=== PATIENT | female | born 1990 | race Caucasian/White ===

== ENCOUNTER 2020-02-06 13:47 | Emergency (ER) | payer MEDICAID, OTHER ==
[~2020-02-06] VITALS: Ht 167.6 cm; Wt 59.0 kg
[2020-02-06] MEDS ORDERED: KETOROLAC 15MG/ML VIAL IV ONE (14:45)
[2020-02-06] MEDS ORDERED: SODIUM CHLORIDE 0.9% 1,000 ML IV ONE (14:45)
[2020-02-06 15:08] LABS: BASOPHILS % 0.6 % (0.0-2.0); EOSINOPHILS % 0.8 % (0.0-5.0); HEMATOCRIT. 43.1 % (36.0-48.0); HEMOGLOBIN. 14.5 g/dL (12.0-16.0); LYMPHOCYTES % 24.2 % (20.0-50.0); MEAN CORPUSCULAR HEMOGLOBIN 31.6 pg (28.0-32.0); MEAN CORPUSCULAR VOLUME 93.6 fL (81.0-99.0); MEAN PLATELET VOLUME 9.7 fl (7.4-10.4); MONOCYTES % 6.5 % (2.0-8.0); NEUTROPHILS % 67.9 % (40.0-76.0); PLATELET 180 x1000/uL (130-400)
[2020-02-06 15:11] LABS: D-DIMER 1.53 mg/L FEU (<0.50); PROTHROMBIN TIME 10.9 sec (9.6-11.0)
[2020-02-06 15:14] LABS: CHLORIDE 106 mEq/L (98-107)
[2020-02-06 15:18] LABS: ETHANOL BLOOD < 10 mg/dL
[2020-02-06] MEDS ORDERED: IOHEXOL-350 100 ML BOTTLE ONE (15:29)
[2020-02-06 15:34] LABS: HCG SCREEN NEGATIVE
[2020-02-06 15:41] LABS: CLARITY URINE CLEAR (CLEAR); COLOR URINE YELLOW (YELLOW); KETONES URINE NEGATIVE (NEGATIVE); LEUKOCYTE ESTERASE URINE NEGATIVE (NEGATIVE); NITRITE URINE NEGATIVE (NEGATIVE); OCCULT BLOOD URINE NEGATIVE (NEGATIVE); PH URINE 5.5 (4.5-8.0); PROTEIN URINE NEGATIVE (NEGATIVE); SPECIFIC GRAVITY URINE 1.033 (1.005-1.030); UROBILINOGEN URINE 0.2 E.U./dL (0.2-1.0)
[2020-02-06 15:52] LABS: *AMPHETAMINES SCREEN URINE NEGATIVE (NEGATIVE); *BARBITURATES SCREEN URINE NEGATIVE (NEGATIVE); *BENZODIAZEPINES SCREEN URINE NEGATIVE (NEGATIVE); *COCAINE SCREEN URINE NEGATIVE (NEGATIVE)
[2020-02-06 15:53] LABS: CANNABINOID URINE SCREEN NEGATIVE (NEGATIVE); METHADONE URINE SCREEN NEGATIVE (NEGATIVE); OPIATES URINE SCREEN NEGATIVE (NEGATIVE); PHENCYCLIDINE URINE SCREEN NEGATIVE (NEGATIVE)
[2020-02-06 18:23] VITALS: BP 117/76
== END 2020-02-06 18:26 | disposition short-term general hospital (02) ==
LOC: ER 13:47 → CANBEDREQ 19:05
DX: R07.89 Other chest pain (principal); R42 Dizziness and giddiness; Z90.710 Acquired absence of both cervix and uterus
CPT/HCPCS: 36415; 70450; 71045; 71275; 80053; 80305; 80320; 81003; 81025; 83690; 83880; 84484; 84703; 85025; 85379; 85610; 93005; 96361; 96374; 99285; J1885; J7030; Q9967; G0480

== ENCOUNTER 2020-07-27 18:46 | Emergency (ER) | payer OTHER ==
[~2020-07-27] VITALS: Ht 167.6 cm; Wt 57.0 kg
[2020-07-27] MEDS ORDERED: ONDANSETRON HCL 4MG/2ML INJ IV STA (19:10)
[2020-07-27] MEDS ORDERED: SODIUM CHLORIDE 0.9% 1,000 ML IV ONE (19:15)
[2020-07-27 19:35] LABS: BASOPHILS % 0.5 % (0.0-2.0); EOSINOPHILS % 1.3 % (0.0-5.0); HEMATOCRIT. 37.9 % (36.0-48.0); HEMOGLOBIN. 13.2 g/dL (12.0-16.0); LYMPHOCYTES % 32.7 % (20.0-50.0); MEAN PLATELET VOLUME 10.1 fl (7.4-10.4); MONOCYTES % 8.2 % (2.0-8.0); NEUTROPHILS % 57.3 % (40.0-76.0); PLATELET 160 x1000/uL (130-400); RED BLOOD CELL COUNT 4.12 mill/uL (4.2-5.4); RED CELL DISTRIBUTION WIDTH 12.9 % (11.6-14.6)
[2020-07-27 19:43] LABS: CHLORIDE 111 mEq/L (98-107)
[2020-07-27 19:44] LABS: PROTHROMBIN TIME 11.2 sec (9.6-11.0)
[2020-07-27 19:45] LABS: ETHANOL BLOOD < 10 mg/dL
[2020-07-27 19:57] LABS: BG BASE EXCESS 0.2 mmol/L (-2.0-2.0); BG CARBOXYHEMOGLOBIN 0.2 % (0.5-1.5); BG DEOXYHEMOGLOBIN 3.2 % (0.0-5.0); BG FRACTION INSPIRED OXYGEN 21; BG HCO3 ACT 24.3 mmol/L (22.0-26.0); BG METHEMOGLOBIN 0.3 % (0.0-1.5); BG OXYGEN SATURATION 96.8 % (92.0-98.5); BG OXYHEMOGLOBIN 96.3 % (94.0-97.0); BG PCO2 37.4 mmHg (35.0-45.0); BG PO2 89.2 mmHg (75.0-100.0); BG SAMPLE SITE RIGHT RADIAL; BG TOTAL HEMOGLOBIN 13.8 g/dL (12.0-18.0); BG VENT MODE ROOM AIR
[2020-07-27] MEDS ORDERED: METOCLOPRAMIDE HCL 10MG/2ML VIAL IV ONE (20:30)
[2020-07-27 20:56] LABS: *BARBITURATES SCREEN URINE NEGATIVE (NEGATIVE); *BENZODIAZEPINES SCREEN URINE NEGATIVE (NEGATIVE); *COCAINE SCREEN URINE NEGATIVE (NEGATIVE); METHADONE URINE SCREEN NEGATIVE (NEGATIVE)
[2020-07-27 20:57] LABS: *AMPHETAMINES SCREEN URINE NEGATIVE (NEGATIVE); OPIATES URINE SCREEN NEGATIVE (NEGATIVE); PHENCYCLIDINE URINE SCREEN NEGATIVE (NEGATIVE)
[2020-07-27 21:00] LABS: CANNABINOID URINE SCREEN PRESUMTIVE POSITIVE (NEGATIVE)
[2020-07-27 21:15] LABS: CLARITY URINE CLOUDY (CLEAR); COLOR URINE YELLOW (YELLOW); KETONES URINE NEGATIVE (NEGATIVE); OCCULT BLOOD URINE NEGATIVE (NEGATIVE); PH URINE 8.5 (4.5-8.0); PROTEIN URINE NEGATIVE (NEGATIVE); SPECIFIC GRAVITY URINE 1.023 (1.005-1.030)
[2020-07-27 21:16] LABS: LEUKOCYTE ESTERASE URINE NEGATIVE (NEGATIVE); NITRITE URINE NEGATIVE (NEGATIVE); UROBILINOGEN URINE 0.2 E.U./dL (0.2-1.0)
[2020-07-27] MEDS ORDERED: ACETAMINOPHEN 325MG TABLET PO ONE (21:30)
[2020-07-27] MEDS ORDERED: METO-293 MT (21:36)
[2020-07-27 22:20] VITALS: BP 111/66
== END 2020-07-27 22:32 | disposition home or self-care (01) ==
LOC: ER 18:46
DX: M79.651 Pain in right thigh (principal); R42 Dizziness and giddiness; R11.0 Nausea
CPT/HCPCS: 36415; 36600; 70450; 80053; 80305; 80320; 81003; 82375; 82805; 83690; 85025; 85610; 93971; 96361; 96374; 96375; 99285; J2405; J2765; J7030; G0480

== ENCOUNTER 2021-06-03 18:06 | Emergency (ER) | payer OTHER ==
[~2021-06-03] VITALS: Ht 167.6 cm; Wt 61.0 kg
[~2021-06-03 18:06] MED LIST: METO-293 MT
[2021-06-03 18:09] VITALS: BP 119/78
== END 2021-06-03 22:09 | disposition left against medical advice (07) ==
LOC: ER 18:06
DX: Z53.21 Procedure and treatment not carried out due to patient leaving prior to being seen by health care provider (principal)
CPT/HCPCS: 93005

== ENCOUNTER 2021-09-26 14:58 | Emergency (ER) | payer OTHER ==
[~2021-09-26] VITALS: Ht 167.6 cm; Wt 64.0 kg
[2021-09-26 15:20] VITALS: BP 125/75
[2021-09-26 17:27] LABS: BASOPHILS % 0.6 % (0.0-2.0); EOSINOPHILS % 0.7 % (0.0-5.0); HEMATOCRIT. 42.7 % (36.0-48.0); HEMOGLOBIN. 14.6 g/dL (12.0-16.0); LYMPHOCYTES % 28.1 % (20.0-50.0); MEAN CORPUSCULAR HEMOGLOBIN 31.5 pg (28.0-32.0); MEAN CORPUSCULAR VOLUME 92.2 fL (81.0-99.0); MEAN PLATELET VOLUME 9.7 fl (7.4-10.4); MONOCYTES % 6.7 % (2.0-8.0); NEUTROPHILS % 63.9 % (40.0-76.0); PLATELET 206 x1000/uL (130-400); RED BLOOD CELL COUNT 4.63 mill/uL (4.2-5.4); RED CELL DISTRIBUTION WIDTH 13.3 % (11.6-14.6)
[2021-09-26 17:41] LABS: CHLORIDE 105 mEq/L (98-107)
[2021-09-26 17:46] LABS: HCG SCREEN NEGATIVE
== END 2021-09-26 19:08 | disposition home or self-care (01) ==
LOC: ER 15:09
DX: R07.89 Other chest pain (principal); Z90.49 Acquired absence of other specified parts of digestive tract
CPT/HCPCS: 36415; 71045; 73030; 80053; 84484; 84703; 85025; 93005; 99285

== ENCOUNTER 2023-06-09 14:39 | Emergency (ER) | payer OTHER ==
[~2023-06-09] VITALS: Ht 167.6 cm; Wt 68.0 kg
[2023-06-09 14:42] VITALS: O2SAT 100
[2023-06-09] MEDS ORDERED: P20 MT (18:15)
[2023-06-09] MEDS ORDERED: VALA100044 MT (18:21)
[2023-06-09 19:10] VITALS: BP 117/76; PULSE 71; RESP 18; TEMP 98
== END 2023-06-09 20:49 | disposition home or self-care (01) ==
LOC: ER 14:39
DX: R20.2 Paresthesia of skin (principal); R42 Dizziness and giddiness; R51.9 Headache, unspecified; Z87.19 Personal history of other diseases of the digestive system; Z90.710 Acquired absence of both cervix and uterus; Z90.49 Acquired absence of other specified parts of digestive tract
CPT/HCPCS: 81025; 99282; 99283

== ENCOUNTER 2023-06-12 14:30 | Emergency (ER) | payer OTHER ==
[~2023-06-12] VITALS: Ht 167.6 cm; Wt 68.0 kg
[~2023-06-12 14:30] MED LIST changes: +P20 MT; +VALA100044 MT
[2023-06-12 14:56] VITALS: O2SAT 99
[2023-06-12 18:11] LABS: HEMATOCRIT. 43.1 % (36.0-48.0); HEMOGLOBIN. 14.4 g/dL (12.0-16.0); LYMPHOCYTES % 31.8 % (20.0-50.0); MEAN CORPUSCULAR HEMOGLOBIN 31.3 pg (28.0-32.0); MEAN CORPUSCULAR HGB CONC 33.3 g/dL (31.0-37.0); MEAN CORPUSCULAR VOLUME 93.8 fL (81.0-99.0); MEAN PLATELET VOLUME 9.9 fl (7.4-10.4); MONOCYTES % 13.4 % (2.0-8.0); NEUTROPHILS % 52.8 % (40.0-76.0); PLATELET 193 x1000/uL (130-400); RED BLOOD CELL COUNT 4.59 mill/uL (4.2-5.4); WHITE BLOOD COUNT 5.6 x1000/uL (4.5-11.0)
[2023-06-12 18:26] LABS: HCG SCREEN NEGATIVE
[2023-06-12 18:29] LABS: PROTHROMBIN TIME 10.9 sec (9.6-11.0)
[2023-06-12 18:30] LABS: ALANINE AMINOTRANSFERASE 20 IU/L (10-49); ALBUMIN 4.9 g/dL (3.2-4.8); ASPARTATE AMINOTRANSFERASE 21 IU/L (<34); BILIRUBIN TOTAL 0.4 mg/dL (0.1-1.0); CALCIUM 8.9 mg/dL (8.7-10.4); CARBON DIOXIDE 27 mEq/L (21-32); CHLORIDE 104 mEq/L (98-107); CREATININE 0.6 mg/dL (0.6-1.0); GLUCOSE 82 mg/dL (70-105); POTASSIUM 4.1 mEq/L (3.5-5.1); PROTEIN TOTAL 8.3 g/dL (6.0-8.3); SODIUM 136 mEq/L (136-145); UREA NITROGEN BLOOD 9 mg/dL (9-23)
[2023-06-12 18:33] LABS: TROPONIN I HIGH SENSITIVITY < 4 ng/L (3.0-34)
[2023-06-12 20:41] VITALS: BP 114/76; PULSE 90; RESP 16; TEMP 97.3
== END 2023-06-12 20:47 | disposition home or self-care (01) ==
LOC: ER 14:30
DX: R51.9 Headache, unspecified (principal); R42 Dizziness and giddiness; Z87.19 Personal history of other diseases of the digestive system; Z90.49 Acquired absence of other specified parts of digestive tract; Z90.710 Acquired absence of both cervix and uterus
CPT/HCPCS: 36415; 71045; 80053; 81025; 84484; 84703; 85025; 93005; 99285

== ENCOUNTER 2024-05-19 08:28 | Emergency (ER) | payer MEDICAID ==
[~2024-05-19] VITALS: Ht 167.6 cm; Wt 70.0 kg
[2024-05-19 08:43] VITALS: O2SAT 100
[2024-05-19 09:04] LABS: CLARITY URINE CLEAR (CLEAR); COLOR URINE YELLOW (YELLOW); GLUCOSE URINE NEGATIVE (NEGATIVE); KETONES URINE NEGATIVE (NEGATIVE); LEUKOCYTE ESTERASE URINE NEGATIVE (NEGATIVE); NITRITE URINE NEGATIVE (NEGATIVE); OCCULT BLOOD URINE NEGATIVE (NEGATIVE); PROTEIN URINE NEGATIVE (NEGATIVE); UROBILINOGEN URINE 0.2 E.U./dL (0.2-1.0)
[2024-05-19] MEDS: IBUPROFEN 600MG TABLET PO ONE (09:14)
[2024-05-19 09:17] LABS: BASOPHILS % 0.7 % (0.0-2.0); EOSINOPHILS % 1.4 % (0.0-5.0); HEMATOCRIT. 41.2 % (36.0-48.0); HEMOGLOBIN. 13.6 g/dL (12.0-16.0); LYMPHOCYTES % 24.8 % (20.0-50.0); MEAN CORPUSCULAR HEMOGLOBIN 31.8 pg (28.0-32.0); MEAN CORPUSCULAR HGB CONC 33.1 g/dL (31.0-37.0); MEAN CORPUSCULAR VOLUME 96.2 fL (81.0-99.0); MEAN PLATELET VOLUME 9.6 fl (7.4-10.4); MONOCYTES % 6.3 % (2.0-8.0); NEUTROPHILS % 66.8 % (40.0-76.0); PLATELET 180 x1000/uL (130-400); RED BLOOD CELL COUNT 4.28 mill/uL (4.2-5.4); RED CELL DISTRIBUTION WIDTH 13.8 % (11.6-14.6); WHITE BLOOD COUNT 5.4 x1000/uL (4.5-11.0)
[2024-05-19 09:25] LABS: CHLORIDE 107 mEq/L (98-107); POTASSIUM 4.2 mEq/L (3.5-5.1); SODIUM 141 mEq/L (136-145)
[2024-05-19 09:26] LABS: CALCIUM 8.6 mg/dL (8.7-10.4); CARBON DIOXIDE 26 mEq/L (21-32)
[2024-05-19 09:31] LABS: CREATININE 0.6 mg/dL (0.6-1.0); GLUCOSE 90 mg/dL (70-105); UREA NITROGEN BLOOD 9 mg/dL (9-23)
[2024-05-19 09:33] LABS: ALANINE AMINOTRANSFERASE 14 IU/L (10-49); ASPARTATE AMINOTRANSFERASE 15 IU/L (<34); BILIRUBIN TOTAL 0.6 mg/dL (0.1-1.0); PROTEIN TOTAL 7.2 g/dL (6.0-8.3)
[2024-05-19 09:46] LABS: HCG SCREEN NEGATIVE
[2024-05-19 10:07] VITALS: BP 103/69; PULSE 74; RESP 18; TEMP 36.9; O2SAT 99
== END 2024-05-19 10:09 | disposition home or self-care (01) ==
LOC: ER 08:28
DX: M54.50 Low back pain, unspecified (principal); R35.0 Frequency of micturition; Z90.710 Acquired absence of both cervix and uterus; Z90.49 Acquired absence of other specified parts of digestive tract; Z79.624 Long term (current) use of inhibitors of nucleotide synthesis; Z79.899 Other long term (current) drug therapy
CPT/HCPCS: 36415; 80053; 81003; 81025; 84703; 85025; 87077; 99283